=== PATIENT | female | born 1940 | race Caucasian/White ===

== ENCOUNTER 2017-06-07 12:36 | Emergency (ER) | payer OTHER ==
[~2017-06-07] VITALS: Ht 154.9 cm; Wt 78.8 kg
[2017-06-07 12:38] VITALS: BP 144/81; PULSE 72; RESP 18; TEMP 97.7; O2SAT 97
--- NOTE | 2017-06-07 13:01 | PD ---
HPI Chief Complaint: Head Injury Time Seen by Provider: 12:50 Travel History International Travel<30 days: No Contact w/Intl Traveler<30days: No Traveled to known affect area: No History of Present Illness HPI The patient was seen and examined in the presence of the nurse. This patient complains of headache. 2 days ago she tripped over an outstretched recliner and hit her forehead on the ground. She denies LOC at time of the injury. She does have frontal headache. She complains of some neck pain as well. She takes Xarelto for history of A. fib. She has subsequently developed ecchymosis around both eyes. She has swelling on the forehead. No mental status change. She says she is stubborn and that's why she did not come when the injury happened but came to days later. Symptoms exacerbated by her blood thinner. No alleviating factors. Symptoms severity is moderate. PFSH Past Medical History Hx Anticoagulant Therapy: Yes (XARELTO) Autoimmune Disease: No Blood Disorders: No Anxiety: Yes Depression: Yes Heart Rhythm Problems: No Cancer: No Cardiovascular Problems: Yes (OPEN HEART SX, HTN, CHOL) High Cholesterol: Yes Congestive Heart Failure: No Diabetes: No GERD: Yes Hepatitis: No Hiatal Hernia: No Hypertension: Yes Psychiatric: No Myocardial Infarction: No Ulcer: No ?: Not Past Surgical History AICD: No Genitourinary Surgery: No Pacemaker: No Social History Alcohol Use: No Tobacco Use: No Substance Use: No Allergies-Medications (Allergen,Severity, Reaction): Coded Allergies: Xhorsoa-Csr-Lge Reductase Inhibitor (Verified Allergy, Severe, 06/07/17) Sulfa (Sulfonamide Antibiotics) (Unverified Allergy, Severe, 06/07/17) penicillin G (Unverified Allergy, Severe, 06/07/17) Reported Meds & Prescriptions Reported Meds & Active Scripts Active Reported Livalo (Pitavastatin) 1 Mg Tab 1 Mg PO DAILY Hydrochlorothiazide 25 Mg Tab 25 Mg PO DAILY Synthroid (Levothyroxine Sodium) 75 Mcg Tab 75 Mcg PO DAILY Metoprolol Tartrate 25 Mg Tab 25 Mg PO BID Amlodipine (Amlodipine Besylate) 5 Mg Tab 5 Mg PO DAILY Xarelto (Rivaroxaban) 10 Mg Tab 10 Mg PO HS Review of Systems General / Constitutional: No: Fever Eyes: No: Visual changes HENT: Positive: Headaches, Neck Pain Cardiovascular: No: Chest Pain or Discomfort Respiratory: No: Shortness of Breath Gastrointestinal: No: Abdominal Pain Genitourinary: No: Dysuria Musculoskeletal: No: Pain Skin: No Rash Neurologic: Positive: Headache, No: Weakness Psychiatric: No: Depression Endocrine: No: Polydipsia Hematologic/Lymphatic: No: Easy Bruising Physical Exam Narrative GENERAL: Well-nourished, well-developed patient in no apparent distress. SKIN: Focused skin assessment reveals no rash and nodules. Skin is Warm and dry. HEAD: Has periorbital ecchymosis bilaterally. Has left forehead swelling and ecchymosis. No laceration. Normocephalic. EYES: Pupils equal and round. No scleral icterus. No injection or drainage. ENT: No nasal bleeding or discharge. Mucous membranes pink and moist. NECK: Trachea midline. No JVD. No midline tenderness. CARDIOVASCULAR: Irregularly irregular rhythm. No murmur appreciated. RESPIRATORY: No accessory muscle use. Clear to auscultation. Breath sounds equal bilaterally. GASTROINTESTINAL: Abdomen soft, non-tender, nondistended. Hepatic and splenic margins not palpable. MUSCULOSKELETAL: No obvious deformities. No clubbing. No cyanosis. No edema. NEUROLOGICAL: Awake and alert. No obvious cranial nerve deficits. Motor grossly within normal limits. Normal speech. PSYCHIATRIC: Appropriate mood and affect; insight and judgment normal. Data Data Last Documented VS Vital Signs Date Time Temp Pulse Resp B/P (MAP) Pulse Ox O2 Delivery O2 Flow Rate FiO2 06/07/17 12:50 Room Air 06/07/17 12:38 97.7 72 18 144/81 (102) 97 Orders Orders Iv Access Insert/Monitor (06/07/17 12:54) Complete Blood Count With Diff (06/07/17 12:54) Basic Metabolic Panel (Bmp) (06/07/17 12:54) Ct Brain W/O Iv Contrast(Rout) (06/07/17 ) Ct Cerv Spine W/O Contrast (06/07/17 ) Ed Discharge Order (06/07/17 14:51) Labs Laboratory Tests Test 06/07/17 13:00 White Blood Count 6.1 TH/MM3 Red Blood Count 4.11 MIL/MM3 Hemoglobin 12.1 GM/DL Hematocrit 35.7 % Mean Corpuscular Volume 86.9 FL Mean Corpuscular Hemoglobin 29.3 PG Mean Corpuscular Hemoglobin Concent 33.8 % Red Cell Distribution Width 14.9 % Platelet Count 314 TH/MM3 Mean Platelet Volume 7.2 FL Neutrophils (%) (Auto) 66.9 % Lymphocytes (%) (Auto) 20.8 % Monocytes (%) (Auto) 9.4 % Eosinophils (%) (Auto) 2.2 % Basophils (%) (Auto) 0.7 % Neutrophils # (Auto) 4.1 TH/MM3 Lymphocytes # (Auto) 1.3 TH/MM3 Monocytes # (Auto) 0.6 TH/MM3 Eosinophils # (Auto) 0.1 TH/MM3 Basophils # (Auto) 0.0 TH/MM3 CBC Comment DIFF FINAL Differential Comment Blood Urea Nitrogen 18 MG/DL Creatinine 0.77 MG/DL Random Glucose 88 MG/DL Calcium Level 9.3 MG/DL Sodium Level 136 MEQ/L Potassium Level 3.7 MEQ/L Chloride Level 101 MEQ/L Carbon Dioxide Level 28.1 MEQ/L Anion Gap 7 MEQ/L Estimat Glomerular Filtration Rate 73 ML/MIN MDM Medical Decision Making Medical Screen Exam Complete: Yes Emergency Medical Condition: Yes Medical Record Reviewed: Yes Differential Diagnosis Basilar skull fracture, intracranial hemorrhage, concussion Narrative Course I have reviewed the patient's electronic medical record. 1300: Patient neurologically intact but I'm concerned about basilar skull fracture given her raccoon eyes finding on exam 1400: Brain CT is negative for intracranial hemorrhage or edema or skull fracture C-spine CT shows some degenerative change without fracture 1430: Repeat exam shows she is neurologically intact and minimally symptomatic. She wants to stick with Tylenol for headache and declines prescription We had a discussion regarding her Xarelto usage She's got a lot of ecchymosis and soft tissue hematoma I think she should hold her medicine today and discussed tomorrow was dosed with her physician She will be at risk for stroke if she continues to hold the medication Diagnosis Primary Impression: Head injury due to trauma Qualified Codes: S09.90XA - Unspecified injury of head, initial encounter Additional Impressions: Anticoagulated Traumatic periorbital ecchymosis Qualified Codes: S05.10XA - Contusion of eyeball and orbital tissues, unspecified eye, initial encounter Additional Instructions: The patient was advised to follow up with their physician and return if they worsen. Med/Other Pt SpecificInfo: Other Disposition: DISCHARGE HOME Condition: Stable Darien Anna MD Jun 07, 2017 13:01
[2017-06-07 13:21] LABS: AUTOMATED NEUTROPHIL # 4.1 TH/MM3 (1.8-7.7); BASOPHIL % 0.7 % (0.0-2.0); EOSINOPHIL # 0.1 TH/MM3 (0-0.4); EOSINOPHIL % 2.2 % (0.0-4.0); HEMATOCRIT 35.7 % (35.0-46.0); HEMOGLOBIN 12.1 GM/DL (11.6-15.3); LYMPH % 20.8 % (9.0-44.0); LYMPHOCYTE # 1.3 TH/MM3 (1.0-4.8); MEAN CELL VOLUME 86.9 FL (80.0-100.0); MEAN CORPUSCULAR HEMOGLOBIN 29.3 PG (27.0-34.0); MEAN CORPUSCULAR HGB CONC 33.8 % (32.0-36.0); MEAN PLATELET VOLUME 7.2 FL (7.0-11.0); MONO % 9.4 % (0.0-8.0); MONOCYTE # 0.6 TH/MM3 (0-0.9); NEUT % 66.9 % (16.0-70.0); PLATELET COUNT 314 TH/MM3 (150-450); RED BLOOD COUNT 4.11 MIL/MM3 (4.00-5.30); RED CELL DISTRIBUTION WIDTH 14.9 % (11.6-17.2); WHITE BLOOD COUNT 6.1 TH/MM3 (4.0-11.0)
[2017-06-07 13:25] LABS: BICARBONATE 28.1 MEQ/L (21.0-32.0); CALCIUM 9.3 MG/DL (8.5-10.1)
[2017-06-07 13:29] LABS: CREATININE 0.77 MG/DL (0.50-1.00)
--- NOTE | 2017-06-07 13:51 | RADRPT ---
EXAM DATE/TIME: 06/07/2017 13:38 [facility] COMPARISON: No previous studies available for comparison. INDICATIONS : Head injury. Left frontal swelling and contusion. RADIATION DOSE: 58.50 CTDIvol (mGy) MEDICAL HISTORY : Hypertension. Hypercholesterolemia. Anticoagulant therapy. SURGICAL HISTORY : CABG ENCOUNTER: Initial ACUITY: 4 - 6 days PAIN SCALE: 3/10 LOCATION: Left frontal TECHNIQUE: Multiple contiguous axial images were obtained of the head. Using automated exposure control and adj ustment of the mA and/or kV according to patient size, radiation dose was kept as low as reasonably a chievable to obtain optimal diagnostic quality images. DICOM format image data is available electro nically for review and comparison. FINDINGS: CEREBRUM: The ventricles are normal for age. No evidence of midline shift, mass lesion, hemorrhage or acute in farction. No extra-axial fluid collections are seen. POSTERIOR FOSSA: The cerebellum and brainstem are intact. The 4th ventricle is midline. The cerebellopontine angle i s unremarkable. EXTRACRANIAL: The visualized portion of the orbits is intact. Left frontal soft tissue contusion. SKULL: The calvaria is intact. No evidence of skull fracture. CONCLUSION: No acute intracranial disease. Left frontal soft tissue hematoma. Beka Costa MD on June 07, 2017 at 13:49 Board Certified Radiologist. This report was verified electronically.
[2017-06-07] MEDS ORDERED: LEVO.075 PO (13:53)
[2017-06-07] MEDS ORDERED: LIVA1TAB PO (13:53)
[2017-06-07] MEDS ORDERED: AMLO5TAB2 PO (13:53)
[2017-06-07] MEDS ORDERED: XARE10TA PO (13:53)
[2017-06-07] MEDS ORDERED: METO25TA3 PO (13:53)
[2017-06-07] MEDS ORDERED: HYDR25TA5 PO (13:53)
--- NOTE | 2017-06-07 14:01 | RADRPT ---
EXAM DATE/TIME: 06/07/2017 13:38 [facility] COMPARISON: No previous studies available for comparison. INDICATIONS : Head injury. Left frontal swelling and contusion. RADIATION DOSE: 25.88 CTDIvol (mGy) MEDICAL HISTORY : Hypertension. Hypercholesterolemia. Anticoagulant therapy. SURGICAL HISTORY : CABG ENCOUNTER: Initial ACUITY: 4 - 6 days PAIN SCALE: 3/10 LOCATION: neck TECHNIQUE: Volumetric scanning of the cervical spine was performed. Multiplanar reconstructions in the sagittal, coronal and oblique axial planes were performed. Using automated exposure control and adjustment o f the mA and/or kV according to patient size, radiation dose was kept as low as reasonably achievable to obtain optimal diagnostic quality images. DICOM format image data is available electronically f or review and comparison. FINDINGS: VERTEBRAE: Normal vertebral body height. ALIGNMENT: Minimal anterolisthesis C4 on 5 and minimal retrolisthesis C5 on C6 likely degenerative in nature.. C2-C3: The bony spinal canal is normal in size. No evidence of disc bulge or herniation. The neural forami na are bilaterally patent. C3-C4: The bony spinal canal is normal in size. No evidence of disc bulge or herniation. Bilateral neural f oraminal narrowing greater on the right. C4-C5: Mild broad-based posterior disc osteophyte complex without canal stenosis. Mild bilateral neural fron makenna narrowing. C5-C6: Mild broad-based posterior disc osteophyte complex without canal stenosis. Mild bilateral neural fron makenna narrowing. C6-C7: Mild broad-based posterior disc osteophyte complex without canal stenosis. Mild bilateral neural fron makenna narrowing. C7-T1: The bony spinal canal is normal in size. No evidence of disc bulge or herniation. The neural forami na are bilaterally patent. CONCLUSION: 1. No fracture seen. 2. Degenerative subluxations. Beka Costa MD on June 07, 2017 at 13:57 Board Certified Radiologist. This report was verified electronically.
== END 2017-06-07 15:53 | disposition home or self-care (01) ==
LOC: PHED 12:36
DX: S09.90XA Unspecified injury of head, initial encounter (principal); S05.10XA Contusion of eyeball and orbital tissues, unspecified eye, initial encounter; M54.2 Cervicalgia; F41.9 Anxiety disorder, unspecified; I10 Essential (primary) hypertension; E78.00 Pure hypercholesterolemia, unspecified; K21.9 Gastro-esophageal reflux disease without esophagitis; W01.0XXA Fall on same level from slipping, tripping and stumbling without subsequent striking against object, initial encounter; Z79.899 Other long term (current) drug therapy
CPT/HCPCS: 70450; 72125; 80048; 85025